=== PATIENT | male | born 1950 | race Caucasian/White ===

== ENCOUNTER 2024-03-15 09:39 | Day surgery (SDC) | payer OTHER ==
[~2024-03-15] VITALS: Ht 177.8 cm; Wt 84.3 kg
[~2024-03-15 09:39] MED LIST: ELIGARD45 MG SC; NS 500 ML IV ONE; Povidone-Iodine 450 DROP/30 ML Solution ONE; Tetracaine HCl/Pf 0.5% Opth Soln 4 ml ONE; Triamcinolone Inj Susp 40 MG / ML 1ML Vial ONE
--- NOTE | 2024-03-15 10:09 | NUR ---
03/15/24 Louie9 Daniella Dee 1003 PLEDGET AT 1009
[2024-03-15] MEDS ORDERED: NS 500 ML IV ONE (10:11)
[2024-03-15] MEDS ORDERED: Midazolam HCl 1MG / ML 2ML Vial ONE (10:36)
[2024-03-15] MEDS ORDERED: Lidocaine HCl/Pf 1% 5 ML VIAL XX ONE (10:51)
[2024-03-15] MEDS ORDERED: BSS PLUS/EPINEPHRINE IRRIGATION SOLUTION 500 ML IR ONE (10:51)
[2024-03-15] MEDS ORDERED: Moxifloxacin HCL 0.5 MG/0.1 ML 0.4MLSYR XX ONE (10:51)
[2024-03-15 11:10] VITALS: BP 118/72
== END 2024-03-15 11:25 | disposition home or self-care (01) ==
LOC: ORSCSDS 09:39
PROVIDERS: Ophthalmology
PROC: 08RJ3JZ Replacement of Right Lens with Synthetic Substitute, Percutaneous Approach (ICD-10-PCS; principal; 2024-03-15 11:00)
DX: H25.813 Combined forms of age-related cataract, bilateral (principal); H52.201 Unspecified astigmatism, right eye; J44.9 Chronic obstructive pulmonary disease, unspecified; F43.10 Post-traumatic stress disorder, unspecified; Z79.899 Other long term (current) drug therapy
CPT/HCPCS: J2003; J2250; J3301; J7040; V2632

== ENCOUNTER 2024-05-05 16:27 | Emergency (ER) | payer OTHER ==
[~2024-05-05] VITALS: Ht 177.8 cm; Wt 81.7 kg
[~2024-05-05 16:27] MED LIST changes: -NS 500 ML IV ONE; -Povidone-Iodine 450 DROP/30 ML Solution ONE; -Tetracaine HCl/Pf 0.5% Opth Soln 4 ml ONE; -Triamcinolone Inj Susp 40 MG / ML 1ML Vial ONE
[2024-05-05 16:52] VITALS: BP 147/96
[2024-05-05] MEDS ORDERED: Lidocaine 2% Jelly Uro-Jet UR ONE ×2 (19:35→20:35)
[2024-05-05] MEDS ORDERED: LORazepam 1 MG Tab PO ONE (20:55)
== END 2024-05-05 21:21 | disposition home or self-care (01) ==
LOC: ER 16:27
DX: R33.9 Retention of urine, unspecified (principal); I48.91 Unspecified atrial fibrillation; Z85.46 Personal history of malignant neoplasm of prostate; Z87.891 Personal history of nicotine dependence; Z88.5 Allergy status to narcotic agent; Z79.899 Other long term (current) drug therapy
CPT/HCPCS: 51703; 51798; 99283-25; A9270